=== PATIENT | male | born 1930 | race Caucasian/White ===

== ENCOUNTER 2017-01-08 08:50 | Emergency (ER) | payer MEDICARE ==
[2017-01-08 10:10] LABS: HEMOGLOBIN 12.7 gm/dl (14.0-17.5); RED BLOOD COUNT 4.11 M/UL (4.20-5.50); WHITE BLOOD COUNT 6.4 K/UL (4.5-11.0)
== END 2017-01-08 11:46 | disposition home or self-care (01) ==
LOC: ER1 08:50
PROVIDERS: Physician Assistant
DX: R07.9 Chest pain, unspecified (principal); R10.12 Left upper quadrant pain; R05 Cough; I25.10 Atherosclerotic heart disease of native coronary artery without angina pectoris; E78.5 Hyperlipidemia, unspecified; I10 Essential (primary) hypertension; Z87.891 Personal history of nicotine dependence; Z79.899 Other long term (current) drug therapy
CPT/HCPCS: 36415; 71020; 80053; 82550; 82553; 83690; 83874; 84484; 85025; 85379; 93005; 99285

== ENCOUNTER → 2017-01-19 | Outpatient (CLI) | payer MEDICARE | LOC: LAB 08:23 | PROVIDERS: Internal Medicine Nephrology | DX: N18.3 Chronic kidney disease, stage 3 (moderate) (principal); E79.0 Hyperuricemia without signs of inflammatory arthritis and tophaceous disease; N25.81 Secondary hyperparathyroidism of renal origin; R80.9 Proteinuria, unspecified | CPT/HCPCS: 36415; 80053; 82043; 82570; 84156 ==

== ENCOUNTER → 2017-02-12 | Outpatient (CLI) | payer MEDICARE | LOC: LAB 10:00 | PROVIDERS: Internal Medicine Nephrology | DX: E78.5 Hyperlipidemia, unspecified (principal) | CPT/HCPCS: 36415; 80048 ==